=== PATIENT | female | born 1995 | race Caucasian/White ===

== ENCOUNTER 2016-04-12 16:16 | Emergency (ER) | payer OTHER ==
--- NOTE | 2016-04-12 19:23 | ED CLINICAL REPORT ---
Clinical Report - Physicians/Mid Levels [facility] [address] [place] [address] 04/12/2016 16:18 Patient: SONY CAMPOS Time Seen: 16:49; initial patient contact, initial documentation, patient care assumed. Arrived- By private vehicle. Historian- patient. HISTORY OF PRESENT ILLNESS Chief Complaint: PELVIC PAIN and VAGINAL BLEEDING. This started today and still present. The symptoms are described as moderate. Modifying factors. Not worsened by anything. Not relieved by anything. The patient has had moderate, crampy, sharp, constant abdominal pain. The pain is described as located in the right lower quadrant, suprapubic region, left lower quadrant and lower abdomen, pelvic pain and abnormal bleeding described as spotting. No vaginal pain, low back pain, flank pain, vaginal discharge or pain with urination. No urinary frequency, urgency of urination or hematuria. Sexually active. (would like referral for new ob dr). Currently . In 2nd trimester. confirmed with serum test. Has had care by private doctor. G 1. P 0. Receiving care by private doctor. Similar symptoms previously: None. Recent medical care: Not recently seen/assessed. REVIEW OF SYSTEMS No nausea, vomiting, diarrhea, headache or fever. She has had nasal congestion and a cough. other family sick with flu/uri stuff, hers started today. All systems otherwise negative, except as recorded above. PAST HISTORY Negative. SOCIAL HISTORY Light tobacco smoker. Occasional alcohol use. History of occasional drug use: marijuana. No recent travel. Is a local resident. FAMILY HISTORY Negative. ADDITIONAL NOTES The nursing notes have been reviewed with agreement regarding the chief complaint, HPI, ROS, PMH and patient medications and allergies. PHYSICAL EXAM Vital Signs: 04/12/2016 16:57 BP: 115/64. HR: 100. RR: 18. O2 saturation: 100%. Temp: 98.7 F. Pain level now: 7/10. Have been reviewed as normal and appear to be correct. Appearance: Alert. Oriented X3. No acute distress. HEENT: Normal external inspection. ENT: Pharynx normal. Neck: Neck supple. CVS: Heart sounds normal. Respiratory: No respiratory distress. Breath sounds normal. Chest nontender. Abdomen: Soft and nontender. Nontender gravid uterus palpable to midpoint between pubic symphysis and umbilicus (nurse unable to get fht, us ordered). Back: Normal external inspection. : (deferred per pt choice). Skin: Skin warm and dry. Normal skin color. No rash. Normal skin turgor. Extremities: Extremities nontender. No lower extremity edema. Neuro: Oriented X 3. Mood/affect normal. No motor deficit. No sensory deficit. LABS, X-RAYS, AND EKG Pelvic Sonogram: Normal study. An intrauterine is present. Single focus of cardiac activity present (hr 160's and strong). No acute disease. 15w3d verbal report given by [employer] Mai. Interpretation time: 1845. Laboratory Tests: UA-Culture if indicated: (MATTHEW: 04/12/2016 16:52) ( [facility] [place] 04/12/2016 17:57) Final results Test Result Flag Units (Reference) URINE COLOR ERLIN URINE APPEARANCE CLEAR URINE GLUCOSE NEGATIVE (NEGATIVE) URINE BILIRUBIN NEGATIVE (NEGATIVE) URINE BILIRUBIN ICTOTEST NEGATIVE (NEGATIVE) URINE KETONE 3+ (NEGATIVE) URINE SPECIFIC GRAVITY 1.015 (1.010-1.030) URINE PH >= 9.0 H (5.0-8.0) URINE PROTEIN 1+ (NEGATIVE) URINE UROBILINOGEN 1.0 EU/dL (0.2-1.0) URINE NITRITE NEGATIVE (NEGATIVE) URINE BLOOD NEGATIVE (NEGATIVE) URINE LEUK ESTERASE NEGATIVE (NEGATIVE) URINE RBC 0-1 rbc/hpf (0-1) URINE WBC 1-3 wbc/hpf (0-1) URINE EPITHELIAL CELLS 5-10 EPI/hpf (0-5) URINE BACTERIA MODERATE (2+ TO 3+) (NONE SEEN) URINE COMMENT CULTURE INDICATED MUCUS 2+URINE CULTURES ARE SET-UP BASED ON THE FOLLOWING CRITERIA:POSITIVE NITRITEPOSITIVE LEUKOCYTE ESTERASEGREATER THAN 10 WHITE BLOOD CELLSMODERATE (2+) OR GREATER BACTERIA CBC w Diff: (MATTHEW: 04/12/2016 17:30) ( [facility] [place] 04/12/2016 17:52) Final results Test Result Flag Units (Reference) WHITE BLOOD COUNT 11.1 K/uL (4.5-11.5) RED BLOOD COUNT 4.14 M/uL (4.00-5.20) HEMOGLOBIN 12.9 gm/dL (12.0-16.0) HEMATOCRIT 38.6 % (36.0-46.0) MEAN CELL VOLUME 93 fL (80-100) MEAN CORPUSCULAR HGB 31 pg (26-34) MEAN CORPUSCULAR HGB CONC 33 g/dL (31-37) RED CELL DISTRIBUTION WIDTH 13.1 % (11.6-14.8) PLATELET COUNT 275 K/uL (150-400) NEUTROPHIL % 92.7 H % (50-75) LYMPH % 4.2 L % (25-40) MONO % 2.7 L % (3-14) EOSINOPHIL % 0.3 % (0-4) BASOPHIL % 0.1 % (0-2) CMP: (MATTHEW: 04/12/2016 17:30) ( MsgRcvd 04/12/2016 18:21) Final results Test Result Flag Units (Reference) GLUCOSE 92 mg/dL (70-110) BUN 5 L mg/dL (7-18) CREATININE 0.4 L mg/dL (0.6-1.3) Estimated GFR >60 mL/min Estimated GFR- >60 mL/min Note: Persistent reduction over 3 months in eGFR<60 mL/min/1.73 m2 defines CKD. Patients with eGFR values>=60 mL/min/1.73 m2 may also have CKD if evidence ofpersistent proteinuria. Additional information may be foundat www.kidney.org. SODIUM 139 mmol/L (136-145) POTASSIUM 3.5 mmol/L (3.5-5.1) CHLORIDE 105 mmol/L (98-107) CARBON DIOXIDE 23 mmol/L (21-32) CALCIUM 8.3 L mg/dL (8.5-10.1) TOTAL PROTEIN 6.6 g/dL (6.4-8.2) ALBUMIN 3.0 L g/dL (3.3-5.0) BILIRUBIN, TOTAL 0.4 mg/dL (0.0-1.0) ALKALINE PHOSPHATASE 48 U/L (46-116) AST (SGOT) 18 U/L (15-37) ALT (SGPT) 27 U/L (12-78) BETA HCG, QUANTITATIVE 87402 mIU/mL REFERENCE RANGE:Adult Males: <2 mIU/mLNon- Females: <6 mIU/mL Females:Approximate Approximate hCGGestational Age Range (mIU/mL) 0-1 week 0-501-2 weeks 40-3002-3 weeks 100-94488-4 weeks 500-63509-8 months 5,000-200,0002-3 months 10,000-100,0002nd trimester 3,000-50,0003rd trimester 1,000-50,000 Type & Rh: (MATTHEW: 04/12/2016 17:30) ( MsgRcvd 04/12/2016 18:13) Final results Test Result Flag Units (Reference) PATIENT BLOOD TYPE B Positive . PROGRESS AND PROCEDURES Course of Care: 1904. pt decided to decline pelvic exam since there was no concern for std or infection and us already done. Patient and family counseled in person regarding the patient's stable condition, test results and diagnosis. 1904. Differential Diagnosis: I considered ovarian cysts, endometriosis, uterine fibroids, uterine cancer, intrauterine , incomplete , threatened , endometrial carcinoma and fibroids as a possible cause of vaginal bleeding in this patient. Above considerations are based on history, physical exam, laboratory data and other information. Differential diagnosis was discussed with patient. Disposition: Discharged home in good and unchanged condition (19:23). Condition: good and stable. CLINICAL IMPRESSION Mild vaginal bleeding. Acute viral rhinitis. No airway obstruction. INSTRUCTIONS No sexual contact until symptoms resolve. Warnings: GENERAL WARNINGS: Return or contact your physician immediately if your condition worsens or changes unexpectedly, if not improving as expected, or if other problems arise. Specifically return if problem worsens. Understanding of the discharge instructions verbalized by patient. Follow-up with: Nba Hoover MD, Obstetrics/Gynecology, , [facility] [place] [address] Follow up in about two days even if well. Call for an appointment. Summary of care provided to patient and family. (Electronically signed by Maria Esther Schwartz A.R.N.P. 04/12/2016 20:21)
--- NOTE | 2016-04-12 19:23 | ED NURSING NOTES ---
Clinical Report - Nurses [place] [address] [place] [address] 04/12/2016 16:18 Patient: SONY CAMPOS TRIAGE Triage time 1658 PM. Chief Complaint: VAGINAL BLEED and ABDOMINAL PAIN and SPOTTING. Alert. No acute distress. --17:05 Seht Villegas R.N. 16:57 04/12/16. BP: 115/64 taken on the left arm, via an automated monitor, while lying. HR: 100. RR: 18. O2 saturation: 100% on room air. Temp: 98.7 F (oral). Pain level now: 09/25. --17:05 Seth Villegas R.N. Weight: 85.2 kg stated. Height/Length: 63 inches Per Patient. BMI: 33.3. --17:03 Seth Villegas R.N. Medications None. --17:01 Seth Villegas R.N. Allergies No Known Drug Allergy. --17:02 Seth Villegas R.N. History Arrived by private vehicle. Historian: patient. Primary physician (Kelli). ( Patient presents to the with symptoms of upper respiratory problems. Patient reports cough, congestion, hot and cold sweats, and vomiting. Patient states that she also had episodes of spotting over the past 2 days.). She has had spotting. 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 PAST MEDICAL HX: Prior sexually transmitted disease history: herpes. SOCIAL HX: Current every day light tobacco smoker (cigarette)- less than 1/2 a pack per day. Alcohol use. (no). History of drug use: marijuana. FALL RISK ASSESSMENT: Fall risk assessment completed. No fall risk identified. NUTRITIONAL RISK ASSESSMENT: The nutritional risk assessment revealed no deficiencies. FUNCTIONAL ASSESSMENT: Functional assessment: no impairments noted. LEARNING NEEDS ASSESSMENT: The learning needs assessment revealed no barriers. SKIN INTEGRITY ASSESSMENT: Skin integrity risk assessment completed. No skin integrity risk identified. --17:05 Seth Villegas R.N. PROBLEMS: no known problems. ADDITIONAL SURGERIES: no known surgeries. PHYSICAL ASSESSMENT Ambulatory to room. GENERAL / NEURO / PSYCH: Alert. Oriented X 4. Appears in no acute distress. HEENT: Mucous membranes are pink. RESPIRATORY: Respirations not labored. Breath sounds within normal limits. CVS: Normal heart rate and rhythm. GI / : Abdomen soft and nontender. Bowel sounds within normal limits. Pain with urination. Scant vaginal bleeding present, consisting of bright red blood. A scant amount of bloody vaginal discharge present. SKIN: Skin is warm and dry. --17:22 Seth Villegas R.N. NURSING PROGRESS NOTES Call light placed in reach. Side rails up x 2. Bed placed in lowest position. Brakes of bed on. --17:59 Seth Villegas R.N. The patient is calm and resting quietly. --17:59 Seth Villegas R.N. Bedside pelvic sonogram performed by audio technician ( Heart Tones 167). --18:46 Seth Villegas R.N. DISPOSITION / DISCHARGE Condition at departure: improved. No learning barriers present. Reviewed referral to an youth manager. Patient verbalized understanding. Written instructions provided in [place]. The patient was discharged home and accompanied by family. She left the Emergency Department ambulatory and via private vehicle. Family member driving. --19:40 Seth Villegas R.N. 19:38 04/12/16. BP: 103/66. HR: 80. RR: 16. O2 saturation: 100% on room air. Temp: 98.2 F (oral). Pain level now: 0/10. --19:40 Seth Villegas R.N. Departure time: 1940 PM. --19:40 Seth Villegas R.N. Locked/Released at 04/12/2016 19:40 by Seth Villegas R.N.
--- NOTE | 2016-04-12 19:23 | ED NURSING NOTES ---
Clinical Report - Nurses [place] [address] [place] [address] 04/12/2016 16:18 Patient: SONY CAMPOS TRIAGE Triage time 1658 PM. Chief Complaint: VAGINAL BLEED and ABDOMINAL PAIN and SPOTTING. Alert. No acute distress. --17:05 Seth Villegas R.N. 16:57 04/12/16. BP: 115/64 taken on the left arm, via an automated monitor, while lying. HR: 100. RR: 18. O2 saturation: 100% on room air. Temp: 98.7 F (oral). Pain level now: 09/25. --17:05 Seth Villegas R.N. Weight: 85.2 kg stated. Height/Length: 63 inches Per Patient. BMI: 33.3. --17:03 Seth Villegas R.N. Medications None. --17:01 Seth Villegas R.N. Allergies No Known Drug Allergy. --17:02 Seth Villegas R.N. History Arrived by private vehicle. Historian: patient. Primary physician (Kelli). ( Patient presents to the with symptoms of upper respiratory problems. Patient reports cough, congestion, hot and cold sweats, and vomiting. Patient states that she also had episodes of spotting over the past 2 days.). She has had spotting. 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 PAST MEDICAL HX: Prior sexually transmitted disease history: herpes. SOCIAL HX: Current every day light tobacco smoker (cigarette)- less than 1/2 a pack per day. Alcohol use. (no). History of drug use: marijuana. FALL RISK ASSESSMENT: Fall risk assessment completed. No fall risk identified. NUTRITIONAL RISK ASSESSMENT: The nutritional risk assessment revealed no deficiencies. FUNCTIONAL ASSESSMENT: Functional assessment: no impairments noted. LEARNING NEEDS ASSESSMENT: The learning needs assessment revealed no barriers. SKIN INTEGRITY ASSESSMENT: Skin integrity risk assessment completed. No skin integrity risk identified. --17:05 Seth Villegas R.N. PROBLEMS: no known problems. ADDITIONAL SURGERIES: no known surgeries. PHYSICAL ASSESSMENT Ambulatory to room. GENERAL / NEURO / PSYCH: Alert. Oriented X 4. Appears in no acute distress. HEENT: Mucous membranes are pink. RESPIRATORY: Respirations not labored. Breath sounds within normal limits. CVS: Normal heart rate and rhythm. GI / : Abdomen soft and nontender. Bowel sounds within normal limits. Pain with urination. Scant vaginal bleeding present, consisting of bright red blood. A scant amount of bloody vaginal discharge present. SKIN: Skin is warm and dry. --17:22 Seth Villegas R.N. NURSING PROGRESS NOTES Call light placed in reach. Side rails up x 2. Bed placed in lowest position. Brakes of bed on. --17:59 Seth Villegas R.N. The patient is calm and resting quietly. --17:59 Seth Villegas R.N. Bedside pelvic sonogram performed by apartment maintenance technician ( Heart Tones 167). --18:46 Seth Villegas R.N. DISPOSITION / DISCHARGE Condition at departure: improved. No learning barriers present. Reviewed referral to an heating and ventilation engineer. Patient verbalized understanding. Written instructions provided in Vincentian. The patient was discharged home and accompanied by family. She left the Emergency Department ambulatory and via private vehicle. Family member driving. --19:40 Seth Villegas R.N. 19:38 04/12/16. BP: 103/66. HR: 80. RR: 16. O2 saturation: 100% on room air. Temp: 98.2 F (oral). Pain level now: 0/10. --19:40 Seth Villegas R.N. Departure time: 1940 PM. --19:40 Seth Villegas R.N. Locked/Released at 04/12/2016 19:40 by Seth Villegas R.N.
--- NOTE | 2016-04-12 19:23 | ED ORDER SUMMARY ---
..... Patient: SONY CAMPOS OrderSheet [facility] VisitID: [id number] [address] [place] [address] 21y, F Registration Date/Time: 04/12/2016 ORDER SHEET Weight: 85.2 kg (stated) Allergies: No Known Drug Allergy GENERAL ORDERS: US OB 2nd Trimester (15 weeks) Urgent (17:18 04/12/2016 HBivens A.R.N.P.) (Ack 17:50 LNations ER Tech1) (19:40 HOShaughnessy R.N.) CBC w Diff Urgent (17:18 04/12/2016 HBivens A.R.N.P.) (17:36 HOShaughnessy R.N.) CMP Urgent (17:18 04/12/2016 HBivens A.R.N.P.) (17:36 HOShaughnessy R.N.) UA-Culture if indicated Urgent (17:18 04/12/2016 HBivens A.R.N.P.) (17:36 HOShaughnessy R.N.) Serum Quantitative Urgent (17:18 04/12/2016 HBivens A.R.N.P.) (17:36 HOShaughnessy R.N.) Type & Rh Urgent (17:18 04/12/2016 HBivens A.R.N.P.) (17:36 HOShaughnessy R.N.) Pelvic Exam Setup (17:18 04/12/2016 HBivens A.R.N.P.) (17:36 HOShaughnessy R.N.) MEDICATION ORDERS: IV FLUIDS: ORDER SHEET NOTES: [Electronically signed by Seth Villegas R.N. (19:40 04/12/2016)] [Electronically signed by Maria Esther Schwartz.R.N.P. (20:21 04/12/2016)] [Electronically locked/signed by Seth Villegas R.N. (19:40 04/12/2016)]
--- NOTE | 2016-04-12 19:23 | ED ORDER SUMMARY ---
..... Patient: SONY CAMPOS OrderSheet [facility] VisitID: [id number] [address] [place] [address] 21y, F Registration Date/Time: 04/12/2016 ORDER SHEET Weight: 85.2 kg (stated) Allergies: No Known Drug Allergy GENERAL ORDERS: US OB 2nd Trimester (15 weeks) Urgent (17:18 04/12/2016 HBivens A.R.N.P.) (Ack 17:50 LNations ER Tech1) (19:40 HOShaughnessy R.N.) CBC w Diff Urgent (17:18 04/12/2016 HBivens A.R.N.P.) (17:36 HOShaughnessy R.N.) CMP Urgent (17:18 04/12/2016 HBivens A.R.N.P.) (17:36 HOShaughnessy R.N.) UA-Culture if indicated Urgent (17:18 04/12/2016 HBivens A.R.N.P.) (17:36 HOShaughnessy R.N.) Serum Quantitative Urgent (17:18 04/12/2016 HBivens A.R.N.P.) (17:36 HOShaughnessy R.N.) Type & Rh Urgent (17:18 04/12/2016 HBivens A.R.N.P.) (17:36 HOShaughnessy R.N.) Pelvic Exam Setup (17:18 04/12/2016 HBivens A.R.N.P.) (17:36 HOShaughnessy R.N.) MEDICATION ORDERS: IV FLUIDS: ORDER SHEET NOTES: [Electronically signed by Seth Villegas R.N. (19:40 04/12/2016)] [Electronically signed by Maria Esther Schwartz.R.N.P. (20:21 04/12/2016)] [Electronically locked/signed by Seth Villegas R.N. (19:40 04/12/2016)]
--- NOTE | 2016-04-12 19:23 | ED CLINICAL REPORT ---
Clinical Report - Physicians/Mid Levels [facility] [address] [place] [address] 04/12/2016 16:18 Patient: SONY CAMPOS Time Seen: 16:49; initial patient contact, initial documentation, patient care assumed. Arrived- By private vehicle. Historian- patient. HISTORY OF PRESENT ILLNESS Chief Complaint: PELVIC PAIN and VAGINAL BLEEDING. This started today and still present. The symptoms are described as moderate. Modifying factors. Not worsened by anything. Not relieved by anything. The patient has had moderate, crampy, sharp, constant abdominal pain. The pain is described as located in the right lower quadrant, suprapubic region, left lower quadrant and lower abdomen, pelvic pain and abnormal bleeding described as spotting. No vaginal pain, low back pain, flank pain, vaginal discharge or pain with urination. No urinary frequency, urgency of urination or hematuria. Sexually active. (would like referral for new ob dr). Currently . In 2nd trimester. confirmed with serum test. Has had care by private doctor. G 1. P 0. Receiving care by private doctor. Similar symptoms previously: None. Recent medical care: Not recently seen/assessed. REVIEW OF SYSTEMS No nausea, vomiting, diarrhea, headache or fever. She has had nasal congestion and a cough. other family sick with flu/uri stuff, hers started today. All systems otherwise negative, except as recorded above. PAST HISTORY Negative. SOCIAL HISTORY Light tobacco smoker. Occasional alcohol use. History of occasional drug use: marijuana. No recent travel. Is a local resident. FAMILY HISTORY Negative. ADDITIONAL NOTES The nursing notes have been reviewed with agreement regarding the chief complaint, HPI, ROS, PMH and patient medications and allergies. PHYSICAL EXAM Vital Signs: 04/12/2016 16:57 BP: 115/64. HR: 100. RR: 18. O2 saturation: 100%. Temp: 98.7 F. Pain level now: 7/10. Have been reviewed as normal and appear to be correct. Appearance: Alert. Oriented X3. No acute distress. HEENT: Normal external inspection. ENT: Pharynx normal. Neck: Neck supple. CVS: Heart sounds normal. Respiratory: No respiratory distress. Breath sounds normal. Chest nontender. Abdomen: Soft and nontender. Nontender gravid uterus palpable to midpoint between pubic symphysis and umbilicus (nurse unable to get fht, us ordered). Back: Normal external inspection. : (deferred per pt choice). Skin: Skin warm and dry. Normal skin color. No rash. Normal skin turgor. Extremities: Extremities nontender. No lower extremity edema. Neuro: Oriented X 3. Mood/affect normal. No motor deficit. No sensory deficit. LABS, X-RAYS, AND EKG Pelvic Sonogram: Normal study. An intrauterine is present. Single focus of cardiac activity present (hr 160's and strong). No acute disease. 15w3d verbal report given by [employer] Mai. Interpretation time: 1845. Laboratory Tests: UA-Culture if indicated: (MATTHEW: 04/12/2016 16:52) ( [facility] 17:57) Final results Test Result Flag Units (Reference) URINE COLOR ERLIN URINE APPEARANCE CLEAR URINE GLUCOSE NEGATIVE (NEGATIVE) URINE BILIRUBIN NEGATIVE (NEGATIVE) URINE BILIRUBIN ICTOTEST NEGATIVE (NEGATIVE) URINE KETONE 3+ (NEGATIVE) URINE SPECIFIC GRAVITY 1.015 (1.010-1.030) URINE PH >= 9.0 H (5.0-8.0) URINE PROTEIN 1+ (NEGATIVE) URINE UROBILINOGEN 1.0 EU/dL (0.2-1.0) URINE NITRITE NEGATIVE (NEGATIVE) URINE BLOOD NEGATIVE (NEGATIVE) URINE LEUK ESTERASE NEGATIVE (NEGATIVE) URINE RBC 0-1 rbc/hpf (0-1) URINE WBC 1-3 wbc/hpf (0-1) URINE EPITHELIAL CELLS 5-10 EPI/hpf (0-5) URINE BACTERIA MODERATE (2+ TO 3+) (NONE SEEN) URINE COMMENT CULTURE INDICATED MUCUS 2+URINE CULTURES ARE SET-UP BASED ON THE FOLLOWING CRITERIA:POSITIVE NITRITEPOSITIVE LEUKOCYTE ESTERASEGREATER THAN 10 WHITE BLOOD CELLSMODERATE (2+) OR GREATER BACTERIA CBC w Diff: (MATTHEW: 04/12/2016 17:30) ( [facility] 17:52) Final results Test Result Flag Units (Reference) WHITE BLOOD COUNT 11.1 K/uL (4.5-11.5) RED BLOOD COUNT 4.14 M/uL (4.00-5.20) HEMOGLOBIN 12.9 gm/dL (12.0-16.0) HEMATOCRIT 38.6 % (36.0-46.0) MEAN CELL VOLUME 93 fL (80-100) MEAN CORPUSCULAR HGB 31 pg (26-34) MEAN CORPUSCULAR HGB CONC 33 g/dL (31-37) RED CELL DISTRIBUTION WIDTH 13.1 % (11.6-14.8) PLATELET COUNT 275 K/uL (150-400) NEUTROPHIL % 92.7 H % (50-75) LYMPH % 4.2 L % (25-40) MONO % 2.7 L % (3-14) EOSINOPHIL % 0.3 % (0-4) BASOPHIL % 0.1 % (0-2) CMP: (MATTHEW: 04/12/2016 17:30) ( MsgRcvd 04/12/2016 18:21) Final results Test Result Flag Units (Reference) GLUCOSE 92 mg/dL (70-110) BUN 5 L mg/dL (7-18) CREATININE 0.4 L mg/dL (0.6-1.3) Estimated GFR >60 mL/min Estimated GFR- >60 mL/min Note: Persistent reduction over 3 months in eGFR<60 mL/min/1.73 m2 defines CKD. Patients with eGFR values>=60 mL/min/1.73 m2 may also have CKD if evidence ofpersistent proteinuria. Additional information may be foundat www.kidney.org. SODIUM 139 mmol/L (136-145) POTASSIUM 3.5 mmol/L (3.5-5.1) CHLORIDE 105 mmol/L (98-107) CARBON DIOXIDE 23 mmol/L (21-32) CALCIUM 8.3 L mg/dL (8.5-10.1) TOTAL PROTEIN 6.6 g/dL (6.4-8.2) ALBUMIN 3.0 L g/dL (3.3-5.0) BILIRUBIN, TOTAL 0.4 mg/dL (0.0-1.0) ALKALINE PHOSPHATASE 48 U/L (46-116) AST (SGOT) 18 U/L (15-37) ALT (SGPT) 27 U/L (12-78) BETA HCG, QUANTITATIVE 49641 mIU/mL REFERENCE RANGE:Adult Males: <2 mIU/mLNon- Females: <6 mIU/mL Females:Approximate Approximate hCGGestational Age Range (mIU/mL) 0-1 week 0-501-2 weeks 40-3002-3 weeks 100-80944-4 weeks 500-13575-0 months 5,000-200,0002-3 months 10,000-100,0002nd trimester 3,000-50,0003rd trimester 1,000-50,000 Type & Rh: (MATTHEW: 04/12/2016 17:30) ( MsgRcvd 04/12/2016 18:13) Final results Test Result Flag Units (Reference) PATIENT BLOOD TYPE B Positive . PROGRESS AND PROCEDURES Course of Care: 1904. pt decided to decline pelvic exam since there was no concern for std or infection and us already done. Patient and family counseled in person regarding the patient's stable condition, test results and diagnosis. 1904. Differential Diagnosis: I considered ovarian cysts, endometriosis, uterine fibroids, uterine cancer, intrauterine , incomplete , threatened , endometrial carcinoma and fibroids as a possible cause of vaginal bleeding in this patient. Above considerations are based on history, physical exam, laboratory data and other information. Differential diagnosis was discussed with patient. Disposition: Discharged home in good and unchanged condition (19:23). Condition: good and stable. CLINICAL IMPRESSION Mild vaginal bleeding. Acute viral rhinitis. No airway obstruction. INSTRUCTIONS No sexual contact until symptoms resolve. Warnings: GENERAL WARNINGS: Return or contact your physician immediately if your condition worsens or changes unexpectedly, if not improving as expected, or if other problems arise. Specifically return if problem worsens. Understanding of the discharge instructions verbalized by patient. Follow-up with: Nba Hoover MD, Obstetrics/Gynecology, , [facility] [place] [address] Follow up in about two days even if well. Call for an appointment. Summary of care provided to patient and family. (Electronically signed by Maria Esther Schwartz A.R.N.P. 04/12/2016 20:21)
--- NOTE | 2016-04-12 20:02 | DIAGNOSTIC IMAGING REPORT ---
PROCEDURE: US 2ND TRIMESTER INDICATION: PAIN TECHNIQUE: Coughlin scale, color, and spectral Doppler images of the second trimester gravid uterus were obtained. COMPARISON: None. FINDINGS: Single intrauterine with variable presentation, posterior placenta without previa and heart rate 162 bpm. Amniotic fluid is unremarkable. Normal closed cervix measures 3.8 cm. BPD measures 2.9 cm, 15 weeks 2 days; head circumference 10.8 cm, 15 weeks 1 day; abdominal circumference 9.7 cm, 15 weeks 5 days and femur length 1.9 cm, 15 weeks 4 days. Composite age of 15 weeks 3 days. JAKE 10/01/2016. IMPRESSION: 1. Single live intrauterine , 15 weeks 3 days 2. JAKE 10/01/2016
--- NOTE | 2016-04-12 20:23 | ED DISCHARGE INSTRUCTIONS ---
Patient: SONY CAMPOS General Instructions [facility] VisitID: [id number] [address] [id number] 21y, F Registration Date/Time: 04/12/2016 Mild vaginal bleeding. Acute viral rhinitis. No airway obstruction. INSTRUCTIONS No sexual contact until symptoms resolve. Warnings: GENERAL WARNINGS: Return or contact your physician immediately if your condition worsens or changes unexpectedly, if not improving as expected, or if other problems arise. Specifically return if problem worsens. Understanding of the discharge instructions verbalized by patient. Follow-up with: Nba Hoover MD, Obstetrics/Gynecology, , [facility], [address] [place] [address] Follow up in about two days even if well. Call for an appointment. Summary of care provided to patient and family. ADDITIONAL INFORMATION Irregular Vaginal Bleeding This is a condition in which bleeding occurs at unexpected times of the month. The bleeding may be heavier or billing machine operator than usual. Heavy bleeding may lead to anemia. If severe enough, anemia may cause you to look pale and feel weak or fatigued. You might have shortness of breath even with little exertion. The female hormones produced in your body every month may be out of balance. This imbalance leads to bleeding. Causes could include an ovarian cyst, emotional stress, pelvic infection. Failure to ovulate during your last cycle may also cause this problem. Home Care: If bleeding is heavy, rest and avoid heavy exertion. You may use acetaminophen (Tylenol) or ibuprofen (Motrin, Advil) to control pain, unless another pain medicine was prescribed. [NOTE: If you have chronic liver or kidney disease or ever had a stomach ulcer or GI bleeding, talk with your doctor before using these medicines.] Iron supplements may be prescribed for anemia. It takes about 4-6 weeks for the iron to correct the anemia. Take the medicine as directed. See your doctor for a repeat blood test after you finish the iron treatment. If hormones were prescribed to control your bleeding, take them exactly as directed. If you were prescribed a medicine called Provera (medroxyprogesterone), the bleeding should stop while you are taking it. Another period will start a few days after you finish the medicine. Follow Up with your doctor, or as advised, within the next 1-2 days if heavy bleeding continues. Otherwise, follow up within the next 1-2 weeks. Get Prompt Medical Attention if any of the following occur: Bleeding becomes heavy (soaking one pad an hour for three hours) Fever of 100.4F (38C) or higher, or as directed by your healthcare provider Increase in abdominal pain Weakness, dizziness or fainting Viral Respiratory Illness [Adult] You have an Upper Respiratory Illness (URI) caused by a virus. This illness is contagious during the first few days. It is spread through the air by coughing and sneezing or by direct contact (touching the sick person and then touching your own eyes, nose or mouth). Most viral illnesses go away within 7-10 days with rest and simple home remedies. Sometimes, the illness may last for several weeks. Antibiotics will not kill a virus and are generally not prescribed for this condition. Home Care: 1) If symptoms are severe, rest at home for the first 2-3 days. When you resume activity, don't let yourself get too tired. 2) Avoid being exposed to cigarette smoke (yours or others). 3) Tylenol (acetaminophen) or ibuprofen (Advil, Motrin) will help fever, muscle aching and headache. (Persons under 18 with fever should not take aspirin since this may cause liver damage.) 4) Your appetite may be poor, so a light diet is fine. Avoid dehydration by drinking 6-8 glasses of fluids per day (water, soft drinks, juices, tea, soup). Extra fluids will help loosen secretions in the nose and lungs. 5) Hohs-luf-ylkibon cold medicines will not shorten the length of time youre sick, but they may be helpful for the following symptoms: cough (Robitussin DM); sore throat (Chloraseptic lozenges or spray); nasal and sinus congestion (Actifed, Sudafed, Chlortrimeton). Follow Up with your doctor or as advised if you dont improve over the next week. Get Prompt Medical Attention if any of the following occur: -- Cough with lots of colored sputum (mucus) or blood in your sputum -- Chest pain, shortness of breath, wheezing or have trouble breathing -- Severe headache; face, neck or ear pain -- Fever over 100.4 F (38.0 C) for more than three days -- You cant swallow due to throat pain You have been given the following additional information: Dysfunctional Uterine Bleeding Uri, Viral, No Abx (Adult) (Electronically signed by Maria Esther Schwartz A.R.N.P. 04/12/2016 20:21)
--- NOTE | 2016-04-12 20:23 | ED MAR SUMMARY ---
..... Medication Administration Record [facility] [address] [place], [place] [id number] Patient: SONY CAMPOS Visit ID: [id number] 21y, F Weight: 85.2 kg Height/Length: 63 in BMI: 33.3 ALLERGIES: No Known Drug Allergy
--- NOTE | 2016-04-12 20:23 | ED MED RECONCILIATION SUMMARY ---
Patient: SONY CAMPOS Medication Reconciliation Report [facility] VisitID: [id number] [address] [place] [address] 21y, F Registration Date/Time: 04/12/2016 Weight: 85.2 kg Height/Length: 63 in. BMI: 33.3 ALLERGIES: No Known Drug Allergy The patient's Home Medications are listed below: NONE. The source(s) of the original Home Medication information: Not obtained. The following Medications were given to the patient in the Emergency Department: None. The following Medications were prescribed to the patient: None.
--- NOTE | 2016-04-12 20:23 | ED MED RECONCILIATION SUMMARY ---
Patient: SONY CAMPOS Medication Reconciliation Report [facility] VisitID: [id number] [address] [place] [address] 21y, F Registration Date/Time: 04/12/2016 Weight: 85.2 kg Height/Length: 63 in. BMI: 33.3 ALLERGIES: No Known Drug Allergy The patient's Home Medications are listed below: NONE. The source(s) of the original Home Medication information: Not obtained. The following Medications were given to the patient in the Emergency Department: None. The following Medications were prescribed to the patient: None.
--- NOTE | 2016-04-12 20:23 | ED MAR SUMMARY ---
..... Medication Administration Record [facility] [address] [place], [place] [id number] Patient: SONY CAMPOS Visit ID: [id number] 21y, F Weight: 85.2 kg Height/Length: 63 in BMI: 33.3 ALLERGIES: No Known Drug Allergy
--- NOTE | 2016-04-12 20:23 | ED DISCHARGE INSTRUCTIONS ---
Patient: SONY CAMPOS General Instructions [facility] VisitID: [id number] [address] [phone] 21y, F Registration Date/Time: 04/12/2016 Mild vaginal bleeding. Acute viral rhinitis. No airway obstruction. INSTRUCTIONS No sexual contact until symptoms resolve. Warnings: GENERAL WARNINGS: Return or contact your physician immediately if your condition worsens or changes unexpectedly, if not improving as expected, or if other problems arise. Specifically return if problem worsens. Understanding of the discharge instructions verbalized by patient. Follow-up with: Nba Hoover MD, Obstetrics/Gynecology, , [facility], [address] [place] [address] Follow up in about two days even if well. Call for an appointment. Summary of care provided to patient and family. ADDITIONAL INFORMATION Irregular Vaginal Bleeding This is a condition in which bleeding occurs at unexpected times of the month. The bleeding may be heavier or atomic spectroscopist than usual. Heavy bleeding may lead to anemia. If severe enough, anemia may cause you to look pale and feel weak or fatigued. You might have shortness of breath even with little exertion. The female hormones produced in your body every month may be out of balance. This imbalance leads to bleeding. Causes could include an ovarian cyst, emotional stress, pelvic infection. Failure to ovulate during your last cycle may also cause this problem. Home Care: If bleeding is heavy, rest and avoid heavy exertion. You may use acetaminophen (Tylenol) or ibuprofen (Motrin, Advil) to control pain, unless another pain medicine was prescribed. [NOTE: If you have chronic liver or kidney disease or ever had a stomach ulcer or GI bleeding, talk with your doctor before using these medicines.] Iron supplements may be prescribed for anemia. It takes about 4-6 weeks for the iron to correct the anemia. Take the medicine as directed. See your doctor for a repeat blood test after you finish the iron treatment. If hormones were prescribed to control your bleeding, take them exactly as directed. If you were prescribed a medicine called Provera (medroxyprogesterone), the bleeding should stop while you are taking it. Another period will start a few days after you finish the medicine. Follow Up with your doctor, or as advised, within the next 1-2 days if heavy bleeding continues. Otherwise, follow up within the next 1-2 weeks. Get Prompt Medical Attention if any of the following occur: Bleeding becomes heavy (soaking one pad an hour for three hours) Fever of 100.4F (38C) or higher, or as directed by your healthcare provider Increase in abdominal pain Weakness, dizziness or fainting Viral Respiratory Illness [Adult] You have an Upper Respiratory Illness (URI) caused by a virus. This illness is contagious during the first few days. It is spread through the air by coughing and sneezing or by direct contact (touching the sick person and then touching your own eyes, nose or mouth). Most viral illnesses go away within 7-10 days with rest and simple home remedies. Sometimes, the illness may last for several weeks. Antibiotics will not kill a virus and are generally not prescribed for this condition. Home Care: 1) If symptoms are severe, rest at home for the first 2-3 days. When you resume activity, don't let yourself get too tired. 2) Avoid being exposed to cigarette smoke (yours or others). 3) Tylenol (acetaminophen) or ibuprofen (Advil, Motrin) will help fever, muscle aching and headache. (Persons under 18 with fever should not take aspirin since this may cause liver damage.) 4) Your appetite may be poor, so a light diet is fine. Avoid dehydration by drinking 6-8 glasses of fluids per day (water, soft drinks, juices, tea, soup). Extra fluids will help loosen secretions in the nose and lungs. 5) [id number] cold medicines will not shorten the length of time youre sick, but they may be helpful for the following symptoms: cough (Robitussin DM); sore throat (Chloraseptic lozenges or spray); nasal and sinus congestion (Actifed, Sudafed, Chlortrimeton). Follow Up with your doctor or as advised if you dont improve over the next week. Get Prompt Medical Attention if any of the following occur: -- Cough with lots of colored sputum (mucus) or blood in your sputum -- Chest pain, shortness of breath, wheezing or have trouble breathing -- Severe headache; face, neck or ear pain -- Fever over 100.4 F (38.0 C) for more than three days -- You cant swallow due to throat pain You have been given the following additional information: Dysfunctional Uterine Bleeding Uri, Viral, No Abx (Adult) (Electronically signed by Maria Esther Schwartz A.R.N.P. 04/12/2016 20:21)
== END 2016-04-12 19:41 | disposition home or self-care (01) ==
LOC: ED SRH 16:16
DX: O20.9 Hemorrhage in early pregnancy, unspecified (principal); O99.512 Diseases of the respiratory system complicating pregnancy, second trimester; J00 Acute nasopharyngitis [common cold]; B97.89 Other viral agents as the cause of diseases classified elsewhere; Z3A.15 15 weeks gestation of pregnancy; F17.210 Nicotine dependence, cigarettes, uncomplicated
CPT/HCPCS: 90001; 90004; 90100; 90155; 90197; 90469; 95059